=== PATIENT | female | born 1985 | race Caucasian/White ===

== ENCOUNTER → 2016-10-15 | Day surgery (SDC) | payer OTHER ==
[~2016-10-15] VITALS: Ht 177.8 cm; Wt 124.3 kg
[~2016-10-15] MED LIST: ANUS2.5C2 PR; ANUS25SU TOP; BUPIVACAINE HCL 0.25% 10 ML VIAL As Ordered ONE; COLA100C5 PO; GLYCOPYRROLATE INJ 0.2 MG/ML 2 ML VIAL As Ordered ONE; HYDROmorphone HCL 1 MG/ML SYRINGE (J1170) IV PRN; HYDROmorphone HCL 2 MG/ML 1ML VIAL (J1170) As Ordered ONE; IBUP-1022 PO; KETOROLAC 60 MG/2 ML VIAL (J1885) As Ordered ONE; LIDOCAINE 2% INJ 100 MG/5 ML SDV (FOR ANES.) As Ordered ONE; LR 1,000 ML IV ONE; LR 1,000 ML IV SCH; MIDAZOLAM INJ 2 MG/2 ML VIAL (J2250) As Ordered ONE; MILKSUS PO; MIREIUD IU; MOTR200T44 PO; NEOSTIGMINE 1MG/ML 5 ML SYRINGE (J2710) As Ordered ONE; ONDANSETRON 4MG/2ML VIAL (J2405) As Ordered ONE; ONDANSETRON 4MG/2ML VIAL (J2405) IV PRN; OXYC1TAB23 PO; PERCOCET 5MG/325MG TAB As Ordered ONE; PROPOFOL 200 MG/20 ML VIAL As Ordered ONE; ROCURONIUM BROMIDE 50 MG/5 ML VIAL/SYRINGE As Ordered ONE; SILVER NITRATE APPLICATOR As Ordered ONE; TYLE325T5 PO; dexameTHASONE 4 MG/ML 1ML VIAL (J1100) As Ordered ONE; ePHEDrine SULFATE 25 MG/5 ML(5MG/ML) SYRINGE As Ordered ONE; fentaNYL 100 MCG/2 ML INJECTION (J3010) IV PRN; fentaNYL 250 MCG/5 ML INJECTION (J3010) As Ordered ONE
[2016-10-15 08:27] LABS: MEAN CORPUSCULAR HEMOGLOBIN 31.1 pg (27.0-33.0); MEAN CORPUSCULAR HGB CONC 35.3 g/dl (32.0-36.5); MEAN CORPUSCULAR VOLUME 88.3 fl (80.0-96.0); RED CELL DISTRIBUTION WIDTH 12.5 % (11.5-14.5); WHITE BLOOD COUNT 9.1 K/mm3 (4.0-10.0)
[2016-10-15 08:37] LABS: CONTROL LINE HCG INT CTR LINE PRESENT
[2016-10-15] MEDS: PERCOCET 5MG/325MG TAB PO PRN ×2 (12:16→14:05)
[2016-10-15 14:30] VITALS: BP 119/66
--- NOTE | 2016-10-16 13:09 | RO ---
DATE OF PROCEDURE: 10/15/2016 PREOPERATIVE DIAGNOSES: Satisfied parity, obesity. POSTOPERATIVE DIAGNOSES: Satisfied parity, obesity. PROCEDURE PERFORMED: Laparoscopic bilateral salpingectomy, removal of Mirena intrauterine device (IUD). SURGEON: Raghav Melchor DO AEROPHYSICIST: Jorgito Noyola MD (requested assistance for intra-abdominal/laparoscopic entry). OTHER AEROPHYSICIST: Valencia Castano OMS-IV, and Dr. Plaza, PTY-1 ANESTHESIA TYPE: General endotracheal. SPECIMENS SENT TO PATHOLOGY: Bilateral fallopian tubes. ESTIMATED BLOOD LOSS: 20 mL. FLUIDS REPLACED: 1600 mL lactated Ringer. DRAINS: Baker catheter 300 mL. COMPLICATIONS: None. PREOPERATIVE ANTIBIOTICS: None indicated. INTRAOPERATIVE FINDINGS: Normal uterus, normal adnexa bilaterally. Liver edge, gallbladder normal in appearance. Appendix not visualized. INDICATION: The patient is a 30-year-old . She is of 100% satisfied parity, and she has requested permanent tubal sterilization. She has been counseled on all available control methods, and she has also been counseled regarding long-acting reversible contraceptives. She has declined long-acting reversible contraception, and she is adamant about proceeding with permanent tubal sterilization. Given her options, she elected to proceed with bilateral salpingectomy. DESCRIPTION OF PROCEDURE: The patient was counseled and consented on the risks, benefits, indications, and alternatives of the procedure. Informed consent was obtained. She was taken to the operating room with an intravenous (IV) running and placed on the operating table in the dorsal supine position. General anesthesia was administered, and the airway was secured without any difficulty. She was placed in the low lithotomy position. She was prepared and draped in normal sterile fashion. Time-out was performed per protocol. Baker catheter was placed under sterile conditions. Anesthesia at this point had decompressed the stomach with the orogastric (OG) tube. The sterile speculum was placed into the vagina with good visualization of the cervix. The IUD strings were visualized and grasped with a ring forceps instrument. Downward traction was applied and the IUD was removed completely intact. The Nokterlka uterine manipulator was placed into the uterus with ease. The sterile speculum was removed. Glove switch was performed. Attention was turned to the abdomen. 0.25% Marcaine was injected into the umbilicus approximately 5 mL. A 10 mm skin incision was made within the umbilicus. Veress needle was placed into the abdomen to achieve intraperitoneal placement. However, difficulty was encountered. Given that every time I attempted to insufflate, the opening pressure was above 10 mmHg. I was not comfortable with continuing with the Veress needle, and I made the decision to proceed with an open Sherice technique. To gain intraperitoneal entry at this point, I requested the assistance of Dr. Noyola. Upon Dr. Noyola's arrival, the open Sherice technique was started. However, given the level of obesity and the distance to the rectus sheath fascia, the decision was made to try to attempt Dodd point entry with the Veress needle. Dodd point was delineated. A small incision was made in the left upper quadrant. The Veress needle was placed, and again opening pressure was still above 10 mmHg. At this point, we removed the Veress needle and proceeded to continue with the open Sherice technique. S retractors were placed within the incision. The fascia was eventually able to be grasped with a Pavan clamp and incised with a #11 blade. It was at this point that we achieved entry into the intra-abdominal cavity. The size 10 XL laparoscopic trocar was placed into the intraperitoneal cavity, and the abdomen was insufflated. Opening pressure was 2 mmHg. The abdomen was inspected, and no additional bleeding or incidental injury was noted. After intra-abdominal laparoscopic entry, Dr. Noyola left the operating room. The patient was placed in Trendelenburg. Two lower abdominal 5 mm incisions were made, each 2 cm superior and 2 cm medial to the anterior superior iliac spine. Through these 5 mm incisions, 5 mm XL laparoscopic trocars were placed under direct laparoscopic visualization. No difficulty or incidental injury was noted. The attention was first turned to the right fallopian tube. The right fallopian tube was grasped at the fimbriated end and elevated. The underlying mesosalpinx/broad ligament sequentially clamped, coagulated, and cut with the LigaSure device until the level of the uterus was reached. The amputated right fallopian tube was placed into the anterior cul-de-sac. Excellent hemostasis was noted. Attention was turned to the left fallopian tube. The left fallopian tube was grasped at the fimbriated end and elevated. The underlying mesosalpinx/broad ligament was sequentially clamped, coagulated, and transected with the LigaSure device until the level of the uterus was reached. The amputated left fallopian tube was placed in the anterior cul-de-sac. The 10 mm laparoscope was switched out for the 5 mm laparoscope, and the 5 mm laparoscope was placed in the left side port. Through the 10 mm XL cannula, both fallopian tubes were removed and sent to pathology for permanent section. Excellent hemostasis was noted throughout the entire pelvis. The gas was released from the abdomen. The cannulas were removed. The fascia at the 10 mm incision was closed with 0 Vicryl figure-of-8 stitch. The skin incisions were closed with 4-0 Monocryl in subcuticular fashion and reinforced with Dermabond. The Hulka uterine manipulator was removed. Minimal vaginal bleeding was noted. The Baker catheter was removed. Sponge, lap, needle, and sponge counts were correct. The patient tolerated the entire procedure very well. She was transferred to the postanesthesia care unit (PACU) in good and stable condition. FRANCISCO
== END | disposition home or self-care (01) ==
LOC: M SDC 07:46
PROVIDERS: ATTEND Obstetrics & Gynecology
DX: Z30.2 Encounter for sterilization (principal); E66.9 Obesity, unspecified; F17.210 Nicotine dependence, cigarettes, uncomplicated; F41.9 Anxiety disorder, unspecified; F32.9 Major depressive disorder, single episode, unspecified; Z97.5 Presence of (intrauterine) contraceptive device

== ENCOUNTER 2020-08-27 07:20 | Emergency (ER) | payer OTHER ==
[~2020-08-27] VITALS: Ht 180.3 cm; Wt 122.7 kg
[~2020-08-27 07:20] MED LIST changes: -BUPIVACAINE HCL 0.25% 10 ML VIAL As Ordered ONE; -GLYCOPYRROLATE INJ 0.2 MG/ML 2 ML VIAL As Ordered ONE; -HYDROmorphone HCL 1 MG/ML SYRINGE (J1170) IV PRN; -HYDROmorphone HCL 2 MG/ML 1ML VIAL (J1170) As Ordered ONE; -KETOROLAC 60 MG/2 ML VIAL (J1885) As Ordered ONE; -LIDOCAINE 2% INJ 100 MG/5 ML SDV (FOR ANES.) As Ordered ONE; -LR 1,000 ML IV ONE; -LR 1,000 ML IV SCH; -MIDAZOLAM INJ 2 MG/2 ML VIAL (J2250) As Ordered ONE; +MILK120011 PO; -MILKSUS PO; +MIRE1IUD IU; -MIREIUD IU; -NEOSTIGMINE 1MG/ML 5 ML SYRINGE (J2710) As Ordered ONE; -ONDANSETRON 4MG/2ML VIAL (J2405) As Ordered ONE; -ONDANSETRON 4MG/2ML VIAL (J2405) IV PRN; -PERCOCET 5MG/325MG TAB As Ordered ONE; -PROPOFOL 200 MG/20 ML VIAL As Ordered ONE; -ROCURONIUM BROMIDE 50 MG/5 ML VIAL/SYRINGE As Ordered ONE; -SILVER NITRATE APPLICATOR As Ordered ONE; -dexameTHASONE 4 MG/ML 1ML VIAL (J1100) As Ordered ONE; -ePHEDrine SULFATE 25 MG/5 ML(5MG/ML) SYRINGE As Ordered ONE; -fentaNYL 100 MCG/2 ML INJECTION (J3010) IV PRN; -fentaNYL 250 MCG/5 ML INJECTION (J3010) As Ordered ONE
[2020-08-27] MEDS ORDERED: BACTDSTA (07:26)
[2020-08-27] MEDS ORDERED: LIDOCAINE W/EPINEPHRINE 1% 20ML VIAL INFIL ONE (08:00)
[2020-08-27 09:06] VITALS: BP 135/68
== END 2020-08-27 09:07 | disposition home or self-care (01) ==
LOC: M ED 07:20 → EEVIPCON 07:20 → M ED 09:07
DX: L02.31 Cutaneous abscess of buttock (principal); F41.9 Anxiety disorder, unspecified; F33.9 Major depressive disorder, recurrent, unspecified; E66.9 Obesity, unspecified; Z79.899 Other long term (current) drug therapy

== ENCOUNTER 2022-10-12 09:24 | Emergency (ER) | payer OTHER ==
[~2022-10-12] VITALS: Ht 177.8 cm; Wt 120.0 kg
[2022-10-12 09:24] VITALS: BP 131/79; TEMP 97.8; O2SAT 99
[~2022-10-12 09:24] MED LIST changes: +BACTDSTA
[2022-10-12] MEDS ORDERED: dexAMETHasone 4 MG TAB PO ONE (10:25)
[2022-10-12] MEDS ORDERED: cefTRIAXone SOD 1GM VIAL IM ONE (10:25)
[2022-10-12] MEDS ORDERED: MEDR4PAK PO (10:25)
[2022-10-12] MEDS ORDERED: LIDOCAINE 1% SDV 5ML VIAL DILUENT ONE (10:25)
[2022-10-12] MEDS ORDERED: CEPH500C PO (10:25)
[2022-10-12] MEDS ORDERED: diphenhydrAMINE 25MG CAP PO ONE (10:25)
== END 2022-10-12 11:30 | disposition home or self-care (01) ==
LOC: M ED 09:24
DX: K12.2 Cellulitis and abscess of mouth (principal); F17.200 Nicotine dependence, unspecified, uncomplicated
CPT/HCPCS: 96372; 99283; J0696